=== PATIENT | male | born 1945 | race Two or more races ===

== ENCOUNTER → 2024-01-17 13:01 | Outpatient (REF) | payer MEDICARE, OTHER, SELFPAY | LOC: RAD 13:01 | PROVIDERS: ATTENDING PHYSICIAN Specialist; FAMILY PHYSICIAN Internal Medicine | DX: R31.0 Gross hematuria (principal) | CPT/HCPCS: 74178; Q9967 ==

== ENCOUNTER 2024-02-12 12:39 | Inpatient (IN) | payer MEDICARE, OTHER, SELFPAY ==
[2024-02-06 13:12] VITALS: BMI 37.0
[2024-02-12] VITALS (12 sets, daily range): BP systolic 96–139; BP diastolic 42–76; BMI 34.9; BMI 37.0
[2024-02-12] MEDS: NORMOSOL-R 1000 IV (08:10)
[2024-02-12 08:17] LABS: Glucose - Point of Care 124 mg/dl (70-99)
[2024-02-12 10:15] LABS: Glucose - Point of Care 118 mg/dl (70-99)
--- NOTE | 2024-02-12 11:57 | W.PN.ADMIT ---
Progress Note - Admit
Progress Note - Admit
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
admitted for CBI/pain control
[2024-02-12 12:43] LABS: Hematocrit 42.8 % (39.0-52.0); Hemoglobin 14.4 g/dL (13.0-18.0); Mean Corp Hgb Conc. 33.6 g/dL (33.0-37.0); Mean Corpuscular Hgb 30.4 pg (27.0-31.0); Mean Corpuscular Volume 90.5 fL (80.0-94.0); Mean Platelet Volume 11.1 fL (7.4-10.4); Platelet Count 222 10^3/uL (130-400); Red Blood Cell Count 4.73 10^6/uL (4.70-6.10); Red Cell Dist. Width 13.2 % (11.5-14.5); White Blood Cell Count 9.1 10^3/uL (4.8-10.8)
[2024-02-12 13:03] LABS: Blood Urea Nitrogen 20 mg/dl (9-20); Calcium 8.5 mg/dl (8.4-10.2); Carbon Dioxide 28 mmol/L (22-30); Chloride 101 mmol/L (98-107); Estimated Creatinine Clearance 107 ml/min; Glucose 120 mg/dl (70-99); Sodium 139 mmol/L (135-145); eGFR > 60.00
[2024-02-12] MEDS: NSS 1000 IV (13:19)
--- NOTE | 2024-02-12 14:07 | PTCARENOTE ---
Patient admitted from [facility] post Turbt with stent placement in right and left ureters and bladder biopsy.Vital signs are stable.The patient is alert and oriented.He rates his pain at a 2 out of 10.Continuous bladder irrigation is running.Urine is
yellow.Patient is in his bed with the call christina in reach.
[2024-02-12] MEDS: GLUCOPHAGE 1000 MG PO (17:27)
[2024-02-12] MEDS: ATIVAN 1 MG PO ×2 (17:27→21:57)
[2024-02-12] MEDS: LOPRESSOR 25 MG PO (20:28)
[2024-02-12] MEDS: NEURONTIN 600 MG PO (20:28)
[2024-02-12] MEDS: FLOMAX 0.400000000000000022 MG PO (20:28)
[2024-02-12] MEDS: VIBRAMYCIN 100 MG PO (20:28)
[2024-02-12] MEDS: ADVAIR HFA 230/21 MCG INHALER 2 PUFF INH (20:38)
[2024-02-12] MEDS: LIPITOR 20 MG PO (21:58)
[2024-02-13] VITALS (7 sets, daily range): BP systolic 100–127; BP diastolic 45–62; PULSE 84
[2024-02-13] MEDS: NSS 1000 IV (01:47)
--- NOTE | 2024-02-13 07:35 | W.PN.URO.CBU ---
Today's Communication / Plan
-
advance care toward discharge
Assessment / Plan
-
s/p TURP and TURBT with insertion of right ureteral stents
urine clear
check labs
UOOB/regular diet/wean oxygen
plan for discharge today with villalpando and outpt TOV on sunday
Diagnosis
-
Date of Service: February 13, 2024
-
Patient Diagnosis:
bph
bladder cancer
bilateral ureteral duplication
Post Op Day:
turp/turbt and insertion of right ureteral stents
Subjective
-
urine clear
no flank pain
Objective
-
Vital Signs
Temp Pulse Resp BP Pulse Ox
97.6 F 66 18 114/62 97
02/13/24 03:48 02/13/24 03:48 02/13/24 03:48 02/13/24 03:48 02/13/24 01:58
Intake and Output
02/12/24 02/13/24 02/14/24
06:59 06:59 06:59
Intake Total 1800 / 1800
Output Total 1600 / 1600 2600 / 2600
Balance 200 / 200 -2600 / -2600
Intake:
Oral fluids 900 / 900
IV fluids (Total) 900 / 900
Normosal 500 / 500
Output:
True Urine Output from CBI 1600 / 1600 2600 / 2600
Review of Systems
-
Constitutional: No Symptoms
Respiratory: No Symptoms
Cardiac: No Symptoms
Abdomen/GI: No Symptoms
Physical Exam
-
General - no acute distress
Abdomen - soft, non-tender,
Genitalia - normal- villalpando in place
[2024-02-13] MEDS: SPIRIVA RESPIMAT 2.5 MCG 2 PUFF INH (07:41)
[2024-02-13] MEDS: ADVAIR HFA 230/21 MCG INHALER 2 PUFF INH ×2 (07:42→20:19)
[2024-02-13 07:49] LABS: Hematocrit 45.2 % (39.0-52.0); Hemoglobin 14.8 g/dL (13.0-18.0); Mean Corp Hgb Conc. 32.7 g/dL (33.0-37.0); Mean Corpuscular Hgb 30.4 pg (27.0-31.0); Mean Corpuscular Volume 92.8 fL (80.0-94.0); Mean Platelet Volume 11.3 fL (7.4-10.4); Platelet Count 245 10^3/uL (130-400); Red Blood Cell Count 4.87 10^6/uL (4.70-6.10); Red Cell Dist. Width 13.1 % (11.5-14.5); White Blood Cell Count 15.6 10^3/uL (4.8-10.8)
[2024-02-13 08:17] LABS: Blood Urea Nitrogen 20 mg/dl (9-20); Calcium 9.2 mg/dl (8.4-10.2); Carbon Dioxide 27 mmol/L (22-30); Chloride 100 mmol/L (98-107); Estimated Creatinine Clearance 83 ml/min; Glucose 129 mg/dl (70-99); Potassium 4.5 mmol/L (3.5-5.1); Sodium 139 mmol/L (135-145); eGFR > 60.00
[2024-02-13] MEDS: VIBRAMYCIN 100 MG PO ×2 (08:27→22:37)
[2024-02-13] MEDS: LOPRESSOR 25 MG PO ×2 (08:27→22:37)
[2024-02-13] MEDS: NICODERM TRANSDERMAL 21 MG TRANSDERM (08:28)
[2024-02-13] MEDS: NEURONTIN 600 MG PO ×2 (08:28→22:37)
[2024-02-13] MEDS: WELLBUTRIN XL (24 hour extended release) 150 MG PO (08:28)
[2024-02-13] MEDS: ATIVAN 1 MG PO ×3 (08:28→22:37)
[2024-02-13] MEDS: NORVASC 5 MG PO (08:28)
[2024-02-13] MEDS: VISBIOME 1 CAP PO (08:28)
[2024-02-13] MEDS: GLUCOPHAGE 1000 MG PO ×2 (08:28→17:21)
[2024-02-13] MEDS: PROSCAR 5 MG PO (08:28)
[2024-02-13] MEDS: JARDIANCE 25 MG PO (08:28)
[2024-02-13] MEDS: PROTONIX 40 MG PO (08:28)
[2024-02-13] MEDS: THERAGRAN 1 TABLET PO (08:28)
[2024-02-13] MEDS: MIRALAX 17 GRAMS PO (08:28)
[2024-02-13] MEDS: FLOMAX 0.400000000000000022 MG PO ×2 (08:28→22:37)
--- NOTE | 2024-02-13 10:24 | CM ---
Patient seen bedside.
IA completed.
patient lives with spouse in 2 story home with 1st floor set up.
patient independent prior to admission.
Patient drives.
Patient will be d/c with Ch[facility]illa cath, and plan is removal 02/15/24.
Patient declined VN. Discussed with nursing and [facility] teaching will be completed.
IMM completed.
PCP: [facility]
Pharmacy: [facility]
Plan: home no needs.
Patient aware of CM availability should needs arise.
[2024-02-13] MEDS: DILAUDID 0.5 MG IV (14:03)
--- NOTE | 2024-02-13 17:20 | W.PN.UPDATE ---
Update Note
Progress Note Update
pt's urine has remained clear
however- he feels very weak and is unable to get UOOB
vss
is requiring low rate oxygen
abd benign
urine clear
labs ok
plan
keep overnight
recheck labs in am
IS and cpap tonight
if no better- pt and med consult tomorrow
[2024-02-13] MEDS: LIPITOR 20 MG PO (22:37)
[2024-02-14 06:05] LABS: Hematocrit 42.6 % (39.0-52.0); Hemoglobin 13.7 g/dL (13.0-18.0); Mean Corp Hgb Conc. 32.2 g/dL (33.0-37.0); Mean Corpuscular Volume 93.4 fL (80.0-94.0); Mean Platelet Volume 11.7 fL (7.4-10.4); Platelet Count 200 10^3/uL (130-400); Red Blood Cell Count 4.56 10^6/uL (4.70-6.10); Red Cell Dist. Width 13.3 % (11.5-14.5); White Blood Cell Count 15.2 10^3/uL (4.8-10.8)
[2024-02-14 06:31] LABS: ALT (SGPT) 15 U/L (0-50); AST (SGOT) 20 U/L (17-59); Albumin 3.3 g/dl (3.5-5.0); Alkaline Phosphatase 100 U/L (38-126); Blood Urea Nitrogen 29 mg/dl (9-20); Calcium 8.8 mg/dl (8.4-10.2); Carbon Dioxide 28 mmol/L (22-30); Chloride 103 mmol/L (98-107); Estimated Creatinine Clearance 83 ml/min; Glucose 106 mg/dl (70-99); Potassium 4.4 mmol/L (3.5-5.1); Sodium 138 mmol/L (135-145); Total Bilirubin 0.5 mg/dl (0.2-1.3); Total Protein 5.8 g/dl (6.3-8.2); eGFR > 60.00
[2024-02-14] MEDS: SPIRIVA RESPIMAT 2.5 MCG INH (07:25)
[2024-02-14] MEDS: ADVAIR HFA 230/21 MCG INHALER INH (07:25)
[2024-02-14 07:37] VITALS: BP 123/92
--- NOTE | 2024-02-14 07:58 | W.PN.URO.CBU ---
Today's Communication / Plan
-
hopeful for discharge
Assessment / Plan
-
s/p TURP and TURBT with insertion of right ureteral stents
urine clear
labs and vitals stable
pt feels much better today- will observe until lunch and if stable- discharge with plan for voiding trial tomorrow
did review pathology with pt and plan/pt with by phone
Diagnosis
-
Date of Service: February 14, 2024
-
Patient Diagnosis:
bph
bladder cancer
bilateral ureteral duplication
Post Op Day:
turp/turbt and insertion of right ureteral stents
Subjective
-
pt kept overnight yesterday due to feeling tired and weak
this am feels much better- UOOB- has been able to walk with walker
breathing much easier
Objective
-
Vital Signs
Temp Pulse Resp BP Pulse Ox
97.5 F 73 19 123/92 92
02/14/24 07:37 02/14/24 07:37 02/14/24 07:37 02/14/24 07:37 02/14/24 07:37
Intake and Output
02/13/24 02/14/24 02/15/24
06:59 06:59 06:59
Intake Total 1800 / 1800 1680 / 1680
Output Total 1600 / 1600 3200 / 3200
Balance 200 / 200 -1520 / -1520
Intake:
Oral fluids 900 / 900 1680 / 1680
IV fluids (Total) 900 / 900
Normosal 500 / 500
Output:
Urine, Villalpando 600 / 600
True Urine Output from CBI 1600 / 1600 2600 / 2600
Other:
Number of approximated MODERATE 3
amounts of urine
Laboratory Results
02/14/24 04:51
02/14/24 04:51
Review of Systems
-
Constitutional: Fatigue
Respiratory: No Symptoms
Cardiac: No Symptoms
Abdomen/GI: No Symptoms
: Other (some villalpando bother)
Physical Exam
-
General - no acute distress
Abdomen - soft, non-tender
Genitalia - normal- villalpando in place- urine clear
Skin - warm & dry with no rash
Neuro - AOx3, no motor deficits
Extremities - no clubbing, no cyanosis, no edema
[2024-02-14] MEDS: WELLBUTRIN XL (24 hour extended release) 150 MG PO (08:50)
[2024-02-14] MEDS: JARDIANCE 25 MG PO (08:50)
[2024-02-14] MEDS: GLUCOPHAGE 1000 MG PO (08:50)
[2024-02-14] MEDS: PROTONIX 40 MG PO (08:51)
[2024-02-14] MEDS: NORVASC 5 MG PO (08:51)
[2024-02-14] MEDS: ATIVAN 1 MG PO (08:51)
[2024-02-14] MEDS: VIBRAMYCIN 100 MG PO (08:51)
[2024-02-14] MEDS: NEURONTIN 600 MG PO (08:51)
[2024-02-14] MEDS: VISBIOME 1 CAP PO (08:51)
[2024-02-14] MEDS: PROSCAR 5 MG PO (08:51)
[2024-02-14] MEDS: LOPRESSOR 25 MG PO (08:51)
[2024-02-14] MEDS: FLOMAX 0.400000000000000022 MG PO (08:52)
[2024-02-14] MEDS: THERAGRAN PO (08:56)
[2024-02-14] MEDS: NICODERM TRANSDERMAL TRANSDERM (08:56)
[2024-02-14] MEDS: MIRALAX PO (08:56)
[2024-02-14 11:54] VITALS: BP 131/68
--- NOTE | 2024-02-14 13:58 | CM ---
Patient has been medically cleared for discharge to home with no additional skilled services. CM offered HH VN but patient and declined. Patient has villalpando which is scheduled to be removed in office on 02/15/24. IMM signed. transported
home.
== END 2024-02-14 12:23 | disposition home or self-care (01) | DRG 658 ==
LOC: 2 SOUTH 12:39
PROVIDERS: ADMITTING PHYSICIAN Specialist
PROC: 0T7D8ZZ Dilation of Urethra, Via Natural or Artificial Opening Endoscopic (ICD-10-PCS; 2024-02-12)
PROC: 0VB08ZZ Excision of Prostate, Via Natural or Artificial Opening Endoscopic (ICD-10-PCS; 2024-02-12)
PROC: 0TBB8ZZ Excision of Bladder, Via Natural or Artificial Opening Endoscopic (ICD-10-PCS; 2024-02-12)
PROC: 0TH98YZ Insertion of Other Device into Ureter, Via Natural or Artificial Opening Endoscopic (ICD-10-PCS; 2024-02-12)
PROC: 5A09357 Assistance with Respiratory Ventilation, Less than 24 Consecutive Hours, Continuous Positive Airway Pressure (ICD-10-PCS; 2024-02-12)
DX: C67.9 Malignant neoplasm of bladder, unspecified (principal); Q62.5 Duplication of ureter; N35.911 Unspecified urethral stricture, male, meatal; E11.9 Type 2 diabetes mellitus without complications; N40.1 Benign prostatic hyperplasia with lower urinary tract symptoms; R35.0 Frequency of micturition; R35.1 Nocturia; R39.12 Poor urinary stream; J44.9 Chronic obstructive pulmonary disease, unspecified; K21.9 Gastro-esophageal reflux disease without esophagitis; I10 Essential (primary) hypertension; E78.00 Pure hypercholesterolemia, unspecified; E66.9 Obesity, unspecified; Z68.34 Body mass index [BMI] 34.0-34.9, adult; Z88.0 Allergy status to penicillin; Z79.51 Long term (current) use of inhaled steroids; Z79.84 Long term (current) use of oral hypoglycemic drugs
CPT/HCPCS: 88305; 88307; 74018; 76000; 80048; 80053; 82962; 85027; 94640; 94660; 99406; C1758; C2617

== ENCOUNTER 2024-03-11 06:22 | Day surgery (SDC) | payer MEDICARE, OTHER, SELFPAY ==
[2024-03-11] VITALS (11 sets, daily range): BP systolic 118–137; BP diastolic 62–77; BMI 36.6
[2024-03-11] MEDS: NORMOSOL-R 1000 IV (10:18)
[2024-03-11 10:22] LABS: Glucose - Point of Care 138 mg/dl (70-99)
[2024-03-11 12:20] LABS: Glucose - Point of Care 78 mg/dl (70-99)
[2024-03-11 13:58] LABS: Glucose - Point of Care 101 mg/dl (70-99)
[2024-03-11] MEDS: SYRINGE NON-PUMP 50 ML IRRIG ×2 (14:17→14:18)
[2024-03-11] MEDS: SYRINGE NON-PUMP 50 MG IRRIG ×2 (14:17→14:18)
[2024-03-11] MEDS: DETROL LA 4 MG PO (14:49)
== END 2024-03-11 16:30 | disposition home or self-care (01) ==
LOC: SDS 06:22
PROVIDERS: ATTENDING PHYSICIAN Specialist
DX: D30.3 Benign neoplasm of bladder (principal); D49.4 Neoplasm of unspecified behavior of bladder; C67.9 Malignant neoplasm of bladder, unspecified; N40.1 Benign prostatic hyperplasia with lower urinary tract symptoms; Q62.5 Duplication of ureter
CPT/HCPCS: 52235; 52332; 88307; 74018; 76000; 82962; 88341; 88342; C2617; J9201

== ENCOUNTER → 2024-07-14 12:33 | Outpatient (REF) | payer MEDICARE, OTHER, SELFPAY | LOC: RAD 12:33 | PROVIDERS: ATTENDING PHYSICIAN Specialist; FAMILY PHYSICIAN Internal Medicine | DX: C67.9 Malignant neoplasm of bladder, unspecified (principal) | CPT/HCPCS: 76770 ==

== ENCOUNTER → 2024-08-14 09:18 | Day surgery (SDC) | payer MEDICARE, OTHER, SELFPAY ==
[2024-08-14 09:53] LABS: Hematocrit 47.2 % (39.0-52.0); Hemoglobin 15.4 g/dL (13.0-18.0); Mean Corp Hgb Conc. 32.6 g/dL (33.0-37.0); Mean Corpuscular Hgb 30.2 pg (27.0-31.0); Mean Corpuscular Volume 92.5 fL (80.0-94.0); Mean Platelet Volume 11.2 fL (7.4-10.4); Platelet Count 309 10^3/uL (130-400); Red Cell Dist. Width 12.8 % (11.5-14.5); White Blood Cell Count 19.1 10^3/uL (4.8-10.8)
[2024-08-14 11:00] LABS: Blood Urea Nitrogen 15 mg/dl (9-20); Calcium 9.6 mg/dl (8.4-10.2); Carbon Dioxide 30 mmol/L (22-30); Chloride 99 mmol/L (98-107); Glucose 139 mg/dl (70-99); Potassium 4.6 mmol/L (3.5-5.1); Sodium 140 mmol/L (135-145); eGFR > 60.00
== END ==
LOC: SDSPAT 09:18
PROVIDERS: ATTENDING PHYSICIAN Specialist; FAMILY PHYSICIAN Internal Medicine; OTHER PHYSICIAN Internal Medicine Cardiovascular Disease
DX: Z01.810 Encounter for preprocedural cardiovascular examination (principal); Z01.812 Encounter for preprocedural laboratory examination
CPT/HCPCS: 93005; 36415; 80048; 85027

== ENCOUNTER 2024-08-21 06:45 | Day surgery (SDC) | payer MEDICARE, OTHER, SELFPAY ==
[2024-08-14 13:31] VITALS: BMI 35.8
--- NOTE | 2024-08-18 13:09 | PTCARENOTE ---
Serum WBC's 21/09 collected on 08/14/24; Alexi at 's office were notified.
[2024-08-21] VITALS (13 sets, daily range): BP systolic 112–132; BP diastolic 54–82; BMI 35.8
[2024-08-21 09:51] LABS: Glucose - Point of Care 136 mg/dl (70-99)
[2024-08-21] MEDS: CYSVIEW KIT 100 MG INTRAVES (09:51)
[2024-08-21] MEDS: NORMOSOL-R/PLASMALYTE-A 1000 IV (10:08)
[2024-08-21 12:32] LABS: Glucose - Point of Care 115 mg/dl (70-99)
[2024-08-21] MEDS: SYRINGE NON-PUMP 50 MG IRRIG ×2 (12:47→12:48)
[2024-08-21] MEDS: SYRINGE NON-PUMP 50 ML IRRIG ×2 (12:47→12:48)
[2024-08-21] MEDS: DETROL LA 4 MG PO (13:48)
== END 2024-08-21 15:40 | disposition home or self-care (01) ==
LOC: SDS 06:45
PROVIDERS: ATTENDING PHYSICIAN Specialist; FAMILY PHYSICIAN Internal Medicine
DX: N30.20 Other chronic cystitis without hematuria (principal); Q62.5 Duplication of ureter
CPT/HCPCS: 52332; 52224; C9738; 88307; 74420; 76000; 82962; A9589; C1758; C1894; C2617; J9201

== ENCOUNTER → 2025-07-31 12:42 | Outpatient (REF) | payer MEDICARE, OTHER, SELFPAY | LOC: RAD 12:42 | PROVIDERS: ATTENDING PHYSICIAN Specialist; FAMILY PHYSICIAN Internal Medicine; OTHER PHYSICIAN Family Medicine Sleep Medicine | DX: C67.9 Malignant neoplasm of bladder, unspecified (principal); J43.2 Centrilobular emphysema; J84.10 Pulmonary fibrosis, unspecified; J96.11 Chronic respiratory failure with hypoxia | CPT/HCPCS: 71250; 74178; Q9967 ==

== ENCOUNTER 2025-08-13 06:29 | Day surgery (SDC) | payer MEDICARE, OTHER, SELFPAY ==
[2025-08-10 11:40] LABS: Hematocrit 45.6 % (39.0-52.0); Hemoglobin 15.1 g/dL (13.0-18.0); Mean Corp Hgb Conc. 33.1 g/dL (33.0-37.0); Mean Corpuscular Volume 91.0 fL (80.0-94.0); Platelet Count 281 10^3/uL (130-400); Red Cell Dist. Width 13.2 % (11.5-14.5)
[2025-08-10 12:17] LABS: Blood Urea Nitrogen 14 mg/dl (9-20); Calcium 9.8 mg/dl (8.4-10.2); Carbon Dioxide 29 mmol/L (22-30); Chloride 102 mmol/L (98-107); Glucose 113 mg/dl (70-99); Potassium 4.9 mmol/L (3.5-5.1); Sodium 137 mmol/L (135-145); eGFR > 60.00
[2025-08-10 12:43] VITALS: BMI 37.8
[2025-08-13] VITALS (11 sets, daily range): BP systolic 106–143; BP diastolic 57–77; BMI 37.8
[2025-08-13 08:52] LABS: Glucose - Point of Care 123 mg/dl (70-99)
[2025-08-13] MEDS: SYRINGE NON-PUMP 50 ML IRRIG (10:58)
[2025-08-13] MEDS: SYRINGE NON-PUMP 50 MG IRRIG (10:58)
[2025-08-13 11:06] LABS: Glucose - Point of Care 130 mg/dl (70-99)
[2025-08-13] MEDS: DETROL LA 4 MG PO (11:17)
[2025-08-13] MEDS: TYLENOL 650 MG PO (11:29)
[2025-08-13] MEDS: SUBLIMAZE 50 MCG IV (11:42)
== END 2025-08-13 13:18 | disposition home or self-care (01) ==
LOC: SDS 06:29
PROVIDERS: ATTENDING PHYSICIAN Specialist; FAMILY PHYSICIAN Internal Medicine
DX: C67.0 Malignant neoplasm of trigone of bladder (principal); C67.4 Malignant neoplasm of posterior wall of bladder
CPT/HCPCS: 52235; 51720; 36415; 80048; 82962; 85027; 88307; 93005; J9201

== ENCOUNTER → 2025-08-24 10:05 | Outpatient (REF) | payer MEDICARE, OTHER, SELFPAY | LOC: RAD 10:05 | PROVIDERS: ATTENDING PHYSICIAN Family Medicine Sleep Medicine; FAMILY PHYSICIAN Internal Medicine | DX: R22.1 Localized swelling, mass and lump, neck (principal) | CPT/HCPCS: 70491; Q9967 ==